=== PATIENT | female | born 1970 | race Caucasian/White ===

== ENCOUNTER 2017-08-04 11:18 | Emergency (ER) | payer MEDICARE, MEDICAID ==
[2017-08-04] MEDS ORDERED: Sodium Chloride 0.9% 1,000 ML IV ONE (11:37)
[2017-08-04 12:04] LABS: % EOSINOPHILS 1.6 % (0.0-5.0); % MONOCYTES 4.2 % (2.0-10.0); % NEUTROPHILS 54.2 % (40.0-80.0); BASOPHILE ABSOLUTE 0.1 Th/cumm (0-0.2); EOSINOPHILE ABSOLUTE 0.1 Th/cmm (0.1-0.4); HEMATOCRIT 36.8 % (41.0-60); HEMOGLOBIN 12.5 gm/dL (12-16); MEAN CELL VOLUME 97.6 fl (81-100); MEAN CORPUSCULAR HEMOGLOBIN 33.2 pg (27.0-31.0); MEAN CORPUSCULAR HGB CONC 34.1 pg (28.0-36.0); MEAN PLATELET VOLUME 6.6 fl; MONOCYTE ABSOLUTE 0.2 Th/cmm (0.3-1.0); NEUTROPHILE ABSOLUTE 2.7 Th/cmm (1.8-8.0); PLATELET COUNT 380 Th/cmm (150-400); RED BLOOD COUNT 3.77 Mil/cmm (3.80-5.10); RED CELL DISTRIBUTION WIDTH 13.9 % (11.5-20.0); WHITE BLOOD COUNT 5.1 Th/cmm (4.8-10.8)
[2017-08-04 12:12] LABS: INR 0.9 (0.5-1.4); PROTHROMBIN TIME (TEST) 9.4 SECONDS (9.5-11.5)
--- NOTE | 2017-08-04 12:16 | ED Physician Chart ---
ED Chief Complaint/HPI - Patient Information Date Seen:: 08/04/17 Time Seen:: 11:25 Chief Complaint:: ALOC History of Present Illness:: pt presents with ALOC and AMS after found on the street sleeping and brought to ER via EMS; pt denies trauma, LOC, H/As, neck pain, C/P, SOB, Abd. Pain, A/N/V/D /C, fever, chills, or urinary s/s; pt admits to ETOH/ Vodka consumption today Allergies:: Allergies Allergy/AdvReac Type Severity Reaction Status Date / Time No Known Allergies Allergy Verified 08/04/17 11:27 Vitals:: Vital Signs - 8 hr 08/04/17 08/04/17 11:27 12:07 Temp 97.7 F 97.9 F HR 94 77 RR 21 18 BP 103/59 113/76 O2 Sat % 98 99 Historian:: Patient, EMS Review:: Nurse's Note Reviewed, EMS run form Reviewed ED Review of Systems - Review of Systems General/Constitutional: No fever, No chills, No weight loss, No weakness, No diaphoresis, No edema, No loss of appetite Skin: No skin lesions, No rash, No bruising Head: No headache, No light-headedness Eyes: No loss of vision, No pain, No diplopia ENT: No earache, No nasal drainage, No sore throat, No tinnitus Neck: No neck pain, No swelling, No thyromegaly, No stiffness, No mass noted Cardio Vascular: No chest pain, No palpitations, No PND, No orthopnea, No edema Pulmonary: No SOB, No cough, No sputum, No wheezing GI: No nausea, No vomiting, No diarrhea, No pain, No melena, No hematochezia, No constipation, No hematemesis G/U: No dysuria, No frequency, No hematuria, No nacturia Machine Wedger: No vaginal discharge, No abnormal vaginal bleed, No contraction Musculoskeletal: No bone or joint pain, No back pain, No muscle pain Endocrine: No polyuria, No polydipsia Psychiatric: No prior psych history, No depression, No anxiety, No suicidal ideation, No homicidal ideation, No auditory hallucination, No visual hallucination Hematopoietic: No bruising, No lymphadenopathy Allergic/Immuno: No urticaria, No angioedema Neurological: No syncope, No focal symptoms, No weakness, No paresthesia, No headache, No seizure, No dizziness, Confusion, No vertigo ED Past Medical History - Past Medical History Obtainable: Yes Past Medical History: No significant medical hx Family History: None Social History: Smoker, Alcohol, No Drug Use, Single, Homeless Surgical History: None Psychiatricy History: None Medication: Reviewed Family Medical History - Family Member Mother Hx Family Cancer: No Hx Family Coronary Artery Disease: No Hx Family Congestive Heart Failure: No Hx Family Hypertension: No Hx Family Stroke: No Hx Family Diabetes: No Hx Family Seizures: No Hx Family Dementia: No Hx Family HIV: No Hx Family COPD: No ED Physical Exam - Physical Examination General/Constitutional: Awake, Well-developed, well-nourished, Alert, No distress, GCS 15, Non-toxic appearing, Ambulatory Head: Atraumatic Eyes: Lids, conjuctiva normal, PERRL, EOMI Skin: Nl inspection, No rash, No skin lesions, No ecchymosis, Well hydrated, No lymphadenopathy ENMT: External ears, nose nl, TM canals nl, Nasal exam nl, Lips, teeth, gums nl , Oropharynx nl, Tonsils nl Neck: Nontender, Full ROM w/o pain, No JVD, No nuchal rigidity, No bruit, No mass, No stridor Other Neck comments:: supple; no meningeal signs; no cervical tenderness; no bruits Respiratory: Nl effort/Exclusion, Clear to Auscultation, No Wheeze/Rhonchi/Rales Cardio Vascular: RRR, No murmur, gallop, rubs, NL S1 S2, Carotid/Femoral/Distal pulses equal bilaterally GI: No tenderness/rebounding/guarding, No organomegaly, No hernia, Normal BS's, Nondistended, No mass/bruits, No McBurney tenderness, Rectum exam nl Other GI comments:: no pulsatile masses; no bleeding; stool: - OB : No CVA tenderness Extremities: No tenderness or effusion, Full ROM, normal strength in all extremities, No edema, Normal digits & nails Neuro/Psych: Alert/oriented, DTR's symmetric, Normal sensory exam, Normal motor strength, Judgement/insight normal, Mood normal, Normal gait, No focal deficits Misc: Normal back, No paraspinal tenderness ED Labs/Radiology/EKG Results - Lab Results Results: Laboratory Tests 08/04/17 08/04/17 08/04/17 11:55 11:55 11:55 WBC 5.1 RBC 3.77 L Hgb 12.5 Hct 36.8 L MCV 97.6 MCH 33.2 H MCHC Differential 34.1 RDW 13.9 Plt Count 380 MPV 6.6 Neutrophils % 54.2 Lymphocytes % 39.0 Monocytes % 4.2 Eosinophils % 1.6 Basophils % 1.0 PT 9.4 L INR 0.90 Serum , Qual NEGATIVE Comments:: K+: 3.1; ETOH: 483 - Radiology Results Comments:: NAD - EKG Interpretations EKG Time:: 11:40 Rate & Rhythm: 73; NSR Comments:: non-specific st-t changes ED Septic Shock - . Is Septic Shock (SBP<90, OR Lactate>4 mmol\L) present?: No - <6hrs of presentation: Vital Signs: Vital Signs - 8 hr 08/04/17 08/04/17 11:27 12:07 Temp 97.7 F 97.9 F HR 94 77 RR 21 18 BP 103/59 113/76 O2 Sat % 98 99 ED Reassessment (Disposition) - Reassessment Reassessment:: pt tolerated po fluids well in ER; pt is A + O x 4; Gait: WNL; Neuro: no focal signs; pt is asymptomatic upon discharge Reassessment Condition:: Improved - Diagnosis Diagnosis:: Hypokalemia; ETOH Intoxication; Alcoholism; ALOC; AMS; ALOC/AMS-Resolved; Substance/Alcohol Abuse - Aftercare/Follow up Instructions Aftercare/Follow-Up Instructions:: Counseled pt regarding lab results/diagnosis & need follow up, Refer to Discharge Instructions, Counseled pt & family regarding lab results/diagnosis & need follow up Medication Prescribed:: RTER prn if existing s/s reoccur and/or get worse and/or any other new s/s occur ; X-Rays Instructions; ACIs given for all above Dx; Refer to Psychiatrist/ Driver Utility Worker [facility]; Refer to [facility]; F/U with PMD in one day or prn; RTER prn if concerned - Patient Disposition Discharge/Transfer:: Against Medical Advice Condition at Disposition:: Stable, Improved ED Discharge Plan - Patient Disposition Admit/Discharge/Transfer: PT DISCHARGED HOME Condition at Disposition: Stable Instructions: Alcohol Intoxication, [id number]
[2017-08-04 12:21] LABS: ALB/GLOB RATIO 1.3 (1.0-1.8); ALBUMIN 3.8 gm/dL (3.7-5.3); ALKALINE PHOSPHATASE 57 U/L (34-104); AMYLASE SERUM 51 U/L (29-103); ANION GAP 12.2 (7.0-16.0); BILIRUBIN,TOTAL 0.3 mg/dL (0.3-1.0); BUN - UREA NITROGEN 7 mg/dL (7-25); CALCIUM SERUM 8.9 mg/dL (8.6-10.3); CARBON DIOXIDE 25.9 mEq/L (21.0-31.0); CHLORIDE 106 mEq/L (98-107); CREATININE - SERUM 0.6 mg/dL (0.6-1.2); CREATININE KINASE 191 U/L (30-223); GFR AFRICAN-AMERICAN > 60.0 ml/min (>90); GFR NON AFRICAN-AMERICAN > 60.0 ml/min; GLUCOSE 131 mg/dL (70-105); LIPASE 70 U/L (11-82); POTASSIUM SERUM 3.1 mEq/L (3.5-5.1); SGOT 35 U/L (13-39); SGPT/ALT 27 U/L (7-52); SODIUM SERUM 141 mEq/L (136-145); TOTAL PROTEIN,SERUM 6.8 gm/dL (6.0-8.3)
[2017-08-04 12:22] LABS: ACETAMINOPHEN < 10.0 ug/mL (10.0-30.0); SALICYLATES (ASPIRIN) < 25.0 mg/L (30.0-100.0)
[2017-08-04] MEDS ORDERED: Multivitamin Inj 10 ML, Thiamine HCL 100 MG, Magnesium Sulfate 2 GM, Folic Acid 1 MG in... IV ONE (14:00)
--- NOTE | 2017-08-04 14:16 | Diagnostic Imaging Report ---
Head CT without intravenous contrast Indication: Trauma, altered level of consciousness Comparison: None Technique: Axial images were obtained from the vertex to the skull base without IV contrast. Coronal reconstructions were made. Total DLP: 610, CTDI35 FINDINGS: Images of the brain obtained without contrast demonstrate no acute hemorrhage. No mass lesions identified. The ventricles and basal cisterns are patent. The nunez-white matter differentiation is preserved. There is no mass effect or midline shift. No skull fractures identified. There is mild soft tissue swelling of the right temporal region. The paranasal sinuses are clear. IMPRESSION: Mild soft tissue swelling right temporal region. No evidence of a skull fracture. No acute intracranial abnormality.
--- NOTE | 2017-08-04 14:41 | Diagnostic Imaging Report ---
CT cervical spine without IV contrast HISTORY: Trauma COMPARISON: None Technique: Axial images were obtained from the skull base to the upper thoracic spine without IV contrast. Multiplanar reconstructions were made. Total DLP: 699, CTDI38 FINDINGS: Exam is nondiagnostic due to motion. Recommend repeat exam when clinically fusible. IMPRESSION: Nondiagnostic exam due to motion. Recommend repeat exam clinically feasible.
[2017-08-04] MEDS ORDERED: Potassium Chloride 20 mEq ER Tab PO ONE ×2 (17:44→17:49)
== END 2017-08-04 19:03 | disposition home or self-care (01) ==
LOC: ER 11:18
DX: F10.129 Alcohol abuse with intoxication, unspecified (principal); E87.6 Hypokalemia; F17.200 Nicotine dependence, unspecified, uncomplicated; Z59.0 Homelessness
CPT/HCPCS: 99285; 96360; 96361; 93005; 70450; 72125; 84484; 83880; 36415; 85025; 85610; 80329 ×2; 80320; 82150; 82550; 84703; 83690; 80053; J3411; J3475; J7030; X6598

== ENCOUNTER 2017-08-10 12:02 | Emergency (ER) | payer MEDICARE, MEDICAID | END 2017-08-10 12:35 | disposition left against medical advice (07) | LOC: ER 12:02 | DX: F10.10 Alcohol abuse, uncomplicated (principal); Z53.21 Procedure and treatment not carried out due to patient leaving prior to being seen by health care provider ==

== ENCOUNTER 2017-08-11 06:07 | Emergency (ER) | payer MEDICARE, MEDICAID ==
--- NOTE | 2017-08-11 06:27 | ED Physician Chart ---
ED Chief Complaint/HPI - Patient Information Date Seen:: 08/11/17 Time Seen:: 06:25 Chief Complaint:: Ok to book History of Present Illness:: 47 yo female was brought to ER for ok to book. The patient has history of alcohol abuse. She last drank vodka a day ago. Currently she had tremor. Allergies:: Allergies Allergy/AdvReac Type Severity Reaction Status Date / Time No Known Allergies Allergy Verified 08/04/17 11:27 Family Medical History - Family Member Mother History Unknown: Yes Hx Family Cancer: No Hx Family Coronary Artery Disease: No Hx Family Congestive Heart Failure: No Hx Family Hypertension: No Hx Family Stroke: No Hx Family Diabetes: No Hx Family Seizures: No Hx Family Dementia: No Hx Family HIV: No Hx Family COPD: No
== END 2017-08-11 07:00 | disposition still patient (30) ==
LOC: ER 06:07
DX: Z02.89 Encounter for other administrative examinations (principal)
CPT/HCPCS: 99284; Q0162; Z7502; Z7610